=== PATIENT | female | born 1960 | race African-American/Black ===

== ENCOUNTER 2017-09-03 16:28 | Outpatient (CLI) | payer OTHER ==
[2017-09-03 17:40] LABS: Hematocrit 35.2 % (36.0-47.0); Mean Platelet Volume 7.9 fL (7.4-10.4); Red Blood Cell (RBC) Count 4.05 mill/uL (4.20-5.40); White Blood Cell (WBC) Count 12.1 thou/uL (4.8-10.8)
[2017-09-03 18:05] LABS: ALT (SGPT) 17 U/L (8-55); AST (SGOT) 18 U/L (5-34); Alkaline Phosphatase 69 U/L (40-150); Anion Gap 13 mmol/L (10-20); BUN (Urea Nitrogen) 8 mg/dL (9.8-20.1); Bilirubin, Direct 0.3 mg/dL (0.1-0.3); Bilirubin, Total 0.7 mg/dL (0.2-1.2); Calc. Creatinine Clearance 0 mL/min (70-130); Calcium 9.6 mg/dL (7.8-10.44); Carbon Dioxide 26 mmol/L (22-29); Chloride 100 mmol/L (98-107); Estimated GFR-MDRD Greater than 90; Protein, Total 7.8 g/dL (6.0-8.3)
--- NOTE | 2017-09-04 13:23 | EKG ---
Test Reason : PREOP Blood Pressure : / mmHG Vent. Rate : 088 BPM Atrial Rate : 088 BPM P-R Int : 152 ms QRS Dur : 074 ms QT Int : 372 ms P-R-T Axes : 053 013 013 degrees QTc Int : 450 ms Sinus rhythm with occasional Premature ventricular complexes Moderate voltage criteria for LVH, may be normal variant Possible Inferior infarct , age undetermined Abnormal ECG Confirmed by DR. Madan SINGER ([id number]) on 09/04/2017 1:23:26 PM Referred By: GLENDY Confirmed By:DR. Madan SINGER
== END 2017-09-03 16:29 | disposition home or self-care (01) ==
LOC: LABBT 16:28
PROVIDERS: ATTEND Surgery
DX: Z01.812 Encounter for preprocedural laboratory examination (principal); K80.20 Calculus of gallbladder without cholecystitis without obstruction
CPT/HCPCS: 80048; 80076; 85027; 93005; 93010

== ENCOUNTER 2017-11-21 10:22 | Outpatient (CLI) | payer OTHER ==
[2017-11-21 11:34] LABS: Hemoglobin 12.8 g/dL (12.0-16.0); Mean Corpuscular HGB CONC 32.6 g/dL (32.0-36.0); Mean Corpuscular Hemoglobin 28.9 pg (27.0-31.0); Mean Corpuscular Volume 88.7 fl (81.0-99.0); Mean Platelet Volume 9.7 fL (7.4-10.4); Platelet Count 195 thou/uL (130-400); RBC Distribution Width 13.5 % (11.5-14.5); Red Blood Cell (RBC) Count 4.41 mill/uL (4.20-5.40); White Blood Cell (WBC) Count 8.5 thou/uL (4.8-10.8)
[2017-11-21 12:02] LABS: ALT (SGPT) 12 U/L (8-55); AST (SGOT) 16 U/L (5-34); Albumin 4.2 g/dL (3.5-5.0); Alkaline Phosphatase 71 U/L (40-150); Anion Gap 11 mmol/L (10-20); BUN (Urea Nitrogen) 10 mg/dL (9.8-20.1); Bilirubin, Direct 0.2 mg/dL (0.1-0.3); Bilirubin, Total 0.4 mg/dL (0.2-1.2); Calc. Creatinine Clearance 0 mL/min (70-130); Calcium 9.5 mg/dL (7.8-10.44); Carbon Dioxide 27 mmol/L (22-29); Chloride 104 mmol/L (98-107); Estimated GFR-MDRD Greater than 90; Glucose 90 mg/dL (70-105); Potassium 4.1 mmol/L (3.5-5.1); Protein, Total 7.4 g/dL (6.0-8.3); Sodium 138 mmol/L (136-145)
== END 2017-11-21 10:23 | disposition home or self-care (01) ==
LOC: LABBT 10:22
PROVIDERS: ATTEND Surgery
DX: Z01.812 Encounter for preprocedural laboratory examination (principal); K80.20 Calculus of gallbladder without cholecystitis without obstruction
CPT/HCPCS: 80048; 80076; 85027

== ENCOUNTER 2017-11-22 11:34 | Day surgery (SDC) | payer OTHER ==
[2017-11-21 10:42] VITALS: BMI 29.3
[2017-11-22] MEDS ORDERED: Indocyanine Green 25 MG/10 ML VIAL ONE (12:30)
[2017-11-22] MEDS ORDERED: CEFAZOLIN/Water 2 GM/20 ML SYRINGE ONE (12:32)
[2017-11-22] MEDS ORDERED: Bupivacaine/Epinephrine 0.25% 30 ML VIAL ONE (12:36)
[2017-11-22] MEDS ORDERED: HYDROmorphone 0.5 MG/0.5 ML SYRINGE ONE (12:50)
[2017-11-22] MEDS ORDERED: Fentanyl 100 MCG/2 ML VIAL ONE ×2 (12:50→14:38)
[2017-11-22] MEDS ORDERED: Ketorolac Tromethamine 30 MG/ML VIAL ONE (14:04)
[2017-11-22] MEDS ORDERED: Glycopyrrolate 0.2 MG/ML 5 ML SYRINGE ONE (14:04)
[2017-11-22] MEDS ORDERED: diphenhydrAMINE 50 MG/ML VIAL ONE (14:04)
[2017-11-22] MEDS ORDERED: Metoclopramide HCl 10 MG/2 ML VIAL ONE (14:04)
[2017-11-22] MEDS ORDERED: Dexamethasone 20 MG/5 ML VIAL ONE (14:04)
[2017-11-22] MEDS ORDERED: Propofol 200 MG/20 ML VIAL ONE (14:04)
[2017-11-22] MEDS ORDERED: Lidocaine 1% PF 5 ML VIAL ONE (14:04)
--- NOTE | 2017-11-22 18:42 | OP ---
DATE: 11/22/2017 PREOPERATIVE DIAGNOSIS: Symptomatic gallstones. POSTOPERATIVE DIAGNOSIS: Symptomatic gallstones. PROCEDURE: Laparoscopic cholecystectomy. SURGEON: Jimmy Lazaro M.D. ANESTHESIA: General. ESTIMATED BLOOD LOSS: Minimal. COMPLICATIONS: None. SPECIMEN: Gallbladder. FINDINGS: Chronic cholecystitis. TECHNIQUE: The patient was taken to the operating room and placed supine on the table. After genera l anesthetic was obtained, the abdomen was prepped and draped in a sterile fashion. Curved incision made below the umbilicus. Cautery was used to dissect down to and score the fascia. Abdominal cavit y entered bluntly using a Vannesa clamp. Holding stitch of PDS was placed on each side of the fascia. A 12-mm trocar was placed and high-flow pneumoperitoneum was obtained. The robot scope was placed i nto the abdomen. There were significant intra-abdominal adhesions. The right upper quadrant was rel atively spared. Decision was made to not dock to the robot. A 5 mm ports x3 were placed in the righ t upper quadrant and the procedure was done to standard laparoscopic. Gallbladder was retracted from the gallbladder fossa. Some adhesions were taken down to the posterior abdominal wall in the right upper quadrant. Peritoneum of the gallbladder was retracted superiorly. The peritoneum of the gallb ladder was opened anteriorly and posteriorly. The critical view triangle was seen showing only the c ystic duct and cystic artery branching medial to lateral and no other branching structures. Two clip s were placed proximally and one distally and cystic duct was cut using laparoscopic scissors. Cysti c artery was taken in the same way. Cautery was used to dissect the gallbladder out of the gallbladd er fossa. The gallbladder was placed in an Endo catch bag and brought out through the 12-mm trocar s ite. All port sites were infiltrated using local anesthetic. All ports were removed under camera vi sualization. Pneumoperitoneum was let down. PDS was used to close the fascial defect below the umbi licus. All incisions were irrigated and closed using 4-0 Monocryl and Dermabond. The patient was en route to recovery in stable condition. All instrument counts, needle counts, and lap counts were co rrect.
== END 2017-11-22 16:15 | disposition home or self-care (01) ==
LOC: SDC 11:34
PROVIDERS: ATTEND Surgery
PROC: 0FT44ZZ Resection of Gallbladder, Percutaneous Endoscopic Approach (ICD-10-PCS; principal; 2017-11-22)
DX: K80.10 Calculus of gallbladder with chronic cholecystitis without obstruction (principal); E03.9 Hypothyroidism, unspecified; E11.9 Type 2 diabetes mellitus without complications; I10 Essential (primary) hypertension; F32.9 Major depressive disorder, single episode, unspecified; Z79.84 Long term (current) use of oral hypoglycemic drugs; Z79.82 Long term (current) use of aspirin; Z79.890 Hormone replacement therapy; Z79.899 Other long term (current) drug therapy; Z88.5 Allergy status to narcotic agent; Z88.1 Allergy status to other antibiotic agents; Z90.710 Acquired absence of both cervix and uterus; Z90.89 Acquired absence of other organs; Z98.890 Other specified postprocedural states
CPT/HCPCS: 88304; 96374; J1100; J1170; J1200; J1885; J2001; J2704; J2765; J3010

== ENCOUNTER 2018-04-18 13:53 | Outpatient (CLI) | payer OTHER | END 2018-04-18 13:54 | disposition home or self-care (01) | LOC: SCSLAB 13:53 | PROVIDERS: ATTEND Family Medicine | DX: Z00.00 Encounter for general adult medical examination without abnormal findings (principal); E11.65 Type 2 diabetes mellitus with hyperglycemia ==

== ENCOUNTER 2018-08-04 09:18 | Outpatient (CLI) | payer OTHER ==
--- NOTE | 2018-08-04 11:38 | RAD ---
KUB: Indication: Abdominal pain. Comparison: None. FINDINGS: Bowel gas pattern is nonobstructed. There are cholecystectomy clips within the right upper quadrant. There are small phleboliths within the lower pelvis. There are small punctate densities overlying the right renal shadow; one of the largest measures 3.4 mm. Lung bases are clear. No acute osseous abnor mality is evident. IMPRESSION: 1. Right nephrolithiasis. 2. No suspicious calcification seen along the expected course of the renal collecting system. 3. Cholecysetctomy. POS: SALAZAR
== END 2018-08-04 09:19 | disposition home or self-care (01) ==
LOC: RAD-FRANK 09:18
PROVIDERS: ATTEND Nurse Practitioner Family
DX: R10.9 Unspecified abdominal pain (principal); N20.0 Calculus of kidney; Z90.49 Acquired absence of other specified parts of digestive tract
CPT/HCPCS: 74018

== ENCOUNTER 2018-08-21 12:02 | Outpatient (CLI) | payer OTHER ==
--- NOTE | 2018-08-21 14:31 | ULT ---
RENAL ULTRASOUND: HISTORY: Renal calculi. FINDINGS: Real-time imaging of the right and left kidneys was performed. The right kidney measures 9.3 cm and the left kidney 10.4 cm in size. There are no signs of cyst, mass, or obstruction. The bladder catrachita on is unremarkable. IMPRESSION: Unremarkable renal ultrasound. POS: LATA
== END 2018-08-21 12:03 | disposition home or self-care (01) ==
LOC: BICMAMMO 12:02
PROVIDERS: ATTEND Family Medicine
DX: Z12.31 Encounter for screening mammogram for malignant neoplasm of breast (principal); R92.1 Mammographic calcification found on diagnostic imaging of breast; N20.0 Calculus of kidney
CPT/HCPCS: 76770; 77063; 77067

== ENCOUNTER 2018-10-20 09:15 | Emergency (ER) | payer OTHER ==
--- NOTE | 2018-10-20 09:48 | RAD ---
FRONTAL VIEW CHEST: COMPARISON: 11/30/2016. INDICATION: Chest pain. FINDINGS: There is no consolidation, effusion, or pneumothorax. Cardiac silhouette is accentuated by portable technique. IMPRESSION: No focal consolidation. POS: C
[2018-10-20 10:10] LABS: #Basophils 0.1 thou/uL (0.0-0.2); #Lymphocytes 2.3 thou/uL (1.20-3.40); #Monocytes 0.6 thou/uL (0.11-0.59); #Neutrophils 6.1 thou/uL (1.40-6.50); %Basophils 0.7 % (0.0-1.0); %Eosinophils 0.3 % (0.0-10.0); %Lymphocytes 25.7 % (21.0-51.0); %Monocytes 6.1 % (0.0-10.0); %Neutrophils 67.3 % (42.0-75.0); Hemoglobin 10.8 g/dL (12.0-16.0); Mean Corpuscular HGB CONC 32.4 g/dL (32.0-36.0); Mean Corpuscular Hemoglobin 28.1 pg (27.0-31.0); Mean Corpuscular Volume 86.8 fL (78.0-98.0); Mean Platelet Volume 8.3 fL (7.4-10.4); Platelet Count 230 thou/uL (130-400); RBC Distribution Width 12.9 % (11.5-14.5); Red Blood Cell (RBC) Count 3.85 mill/uL (4.20-5.40)
[2018-10-20 10:23] LABS: ALT (SGPT) 15 U/L (8-55); AST (SGOT) 17 U/L (5-34); Albumin 3.8 g/dL (3.5-5.0); Alkaline Phosphatase 67 U/L (40-150); Anion Gap 13 mmol/L (10-20); BUN (Urea Nitrogen) 8 mg/dL (9.8-20.1); Bilirubin, Total 0.6 mg/dL (0.2-1.2); CK (CPK) 96 U/L (29-168); Calc. Creatinine Clearance 0 mL/min (70-130); Calcium 8.8 mg/dL (7.8-10.44); Carbon Dioxide 30 mmol/L (22-29); Chloride 103 mmol/L (98-107); Estimated GFR-MDRD Greater than 90; Globulin 3.1 g/dL (2.4-3.5); Glucose 134 mg/dL (70-105); Lipase 23 U/L (8-78); Potassium 3.7 mmol/L (3.5-5.1); Protein, Total 6.9 g/dL (6.0-8.3); Sodium 142 mmol/L (136-145)
[2018-10-20] MEDS ORDERED: Nitroglycerin 2% Ointment 1 INCH/1 GM Packet ONE (11:03)
--- NOTE | 2018-10-22 15:09 | EKG ---
Test Reason : CHEST PAIN Blood Pressure : / mmHG Vent. Rate : 071 BPM Atrial Rate : 071 BPM P-R Int : 144 ms QRS Dur : 070 ms QT Int : 422 ms P-R-T Axes : 020 004 001 degrees QTc Int : 458 ms Normal sinus rhythm Abnormal ECG Confirmed by HARJEET TA ([id number]), index editor MYCHAL BENITEZ ([id number]) on 10/22/2018 3:09:23 PM Referred By: CELY Confirmed By:HARJEET TA
== END 2018-10-20 13:03 | disposition home or self-care (01) ==
LOC: ERS 09:15
DX: R07.9 Chest pain, unspecified (principal); E05.90 Thyrotoxicosis, unspecified without thyrotoxic crisis or storm; E11.9 Type 2 diabetes mellitus without complications; I10 Essential (primary) hypertension; F32.9 Major depressive disorder, single episode, unspecified; Z79.899 Other long term (current) drug therapy
CPT/HCPCS: 36415; 71045; 80053; 82550; 83690; 84484; 85025; 85379; 93005; 94760

== ENCOUNTER 2019-08-05 12:28 | Outpatient (CLI) | payer OTHER ==
--- NOTE | 2019-08-05 13:22 | MMO ---
Bilateral MAMMO Bilat Screen [facility]. CLINICAL HISTORY: Patient is 59 years old and is seen for screening. The patient has no family history of breast cancer. The patient has no personal history of cancer. The patient has a history of left Excisional Biopsy more than 10 years ago - benign. VIEWS: The views performed were: bilateral craniocaudal with tomosynthesis and bilateral mediolateral oblique with tomosynthesis. FILMS COMPARED: The present examination has been compared to prior imaging studies performed at [facility] on 01/25/2012, 02/24/2013, 07/25/2017 and 08/21/2018. This study has been interpreted with the assistance of computer-aided detection. MAMMOGRAM FINDINGS: There are scattered fibroglandular densities. There are no suspicious masses, suspicious calcifications, or new areas of architectural distortion. IMPRESSION: THERE IS NO MAMMOGRAPHIC EVIDENCE OF MALIGNANCY. A ROUTINE FOLLOW-UP MAMMOGRAM IN 1 YEAR IS RECOMMENDED. THE RESULTS OF THIS EXAM WERE SENT TO THE PATIENT. ACR BI-RADS Category 1 - Negative MAMMOGRAPHY NOTE: 1. A negative mammogram report should not delay a biopsy if a dominant of clinically suspicious mass is present. 2. Approximately 10% to 15% of breast cancers are not detected by mammography. 3. Adenosis and dense breasts may obscure an underlying neoplasm. Reported by: RANJIT ALEJO MD Electonically Signed: [id number]
== END 2019-08-05 12:29 | disposition home or self-care (01) ==
LOC: BICMAMMO 12:28
PROVIDERS: ATTEND Family Medicine
DX: Z12.31 Encounter for screening mammogram for malignant neoplasm of breast (principal)
CPT/HCPCS: 77063; 77067

== ENCOUNTER 2020-07-29 17:54 | Emergency (ER) | payer OTHER, SELFPAY ==
[2020-07-29 18:45] LABS: #Lymphocytes 1.9 thou/uL (1.20-3.40); #Neutrophils 11.2 thou/uL (1.40-6.50); %Basophils 0.1 % (0.0-1.0); %Eosinophils 0.3 % (0.0-10.0); %Lymphocytes 13.3 % (21.0-51.0); %Monocytes 7.2 % (0.0-10.0); %Neutrophils 79.1 % (42.0-75.0); Hemoglobin 10.6 g/dL (12.0-16.0); Mean Corpuscular HGB CONC 32.4 g/dL (32.0-36.0); Mean Corpuscular Hemoglobin 28.7 pg (27.0-31.0); Mean Corpuscular Volume 88.5 fL (78.0-98.0); Mean Platelet Volume 8.5 fL (7.4-10.4); Platelet Count 251 thou/uL (130-400); RBC Distribution Width 13.2 % (11.5-14.5); Red Blood Cell (RBC) Count 3.69 mill/uL (4.20-5.40); White Blood Cell (WBC) Count 14.1 thou/uL (4.8-10.8)
[2020-07-29 18:56] LABS: Bilirubin Negative (Negative); Blood, Urine Negative (Negative); Clarity Clear (Clear); Glucose, Urine (Dipstick) Normal (Negative); Ketone, Urine Negative (Negative); Leukocyte Negative Leu/uL (Negative); Nitrite Negative (Negative); Protein, Urine (Dipstick) Negative (Neg-Trace); Specific Gravity, Urine 1.007 (1.002-1.036); Urobilinogen Normal mg/dL (Less than 2); pH, Urine 6.5 (5.0-9.0)
[2020-07-29 19:04] LABS: ALT (SGPT) 14 U/L (8-55); AST (SGOT) 19 U/L (5-34); Albumin 4.1 g/dL (3.5-5.0); Alkaline Phosphatase 68 U/L (40-110); Anion Gap 13 mmol/L (10-20); BUN (Urea Nitrogen) 10 mg/dL (9.8-20.1); Bilirubin, Total 0.2 mg/dL (0.2-1.2); Calc. Creatinine Clearance 0 mL/min (70-130); Calcium 9.7 mg/dL (7.8-10.44); Carbon Dioxide 29 mmol/L (22-29); Chloride 101 mmol/L (98-107); Estimated GFR-MDRD Greater than 90; Globulin 3.4 g/dL (2.4-3.5); Potassium 3.5 mmol/L (3.5-5.1); Protein, Total 7.5 g/dL (6.0-8.3); Sodium 139 mmol/L (136-145)
[2020-07-29 19:16] LABS: Glucose 31 mg/dL (70-105)
[2020-07-29] MEDS ORDERED: Dextrose 50% Abboject 50 ML SYRINGE ONE (19:28)
== END 2020-07-29 23:39 | disposition home or self-care (01) ==
LOC: ERS 17:54
DX: E11.649 Type 2 diabetes mellitus with hypoglycemia without coma (principal); E05.90 Thyrotoxicosis, unspecified without thyrotoxic crisis or storm; I10 Essential (primary) hypertension; F32.9 Major depressive disorder, single episode, unspecified; Z79.84 Long term (current) use of oral hypoglycemic drugs; Z79.899 Other long term (current) drug therapy
CPT/HCPCS: 36415; 36416; 80053; 81003; 85025; 96374

== ENCOUNTER 2024-03-16 13:55 | Inpatient (IN) | payer BC ==
[2024-03-16 21:22] VITALS: BMI 29.7
[2024-03-19 16:35] VITALS: BP 152/88; TEMP 98.3
== END 2024-03-19 19:12 | disposition home or self-care (01) | DRG 287 ==
LOC: ERS 13:55 → ERHOLD 15:44 → 2SW 20:54 → OBSVTOIN 03-18 15:58
PROVIDERS: ADMIT Family Medicine; ATTEND Family Medicine
PROC: 4A023N7 Measurement of Cardiac Sampling and Pressure, Left Heart, Percutaneous Approach (ICD-10-PCS; principal; 2024-03-19)
PROC: B2111ZZ Fluoroscopy of Multiple Coronary Arteries using Low Osmolar Contrast (ICD-10-PCS; 2024-03-19)
PROC: B2151ZZ Fluoroscopy of Left Heart using Low Osmolar Contrast (ICD-10-PCS; 2024-03-19)
DX: I20.1 Angina pectoris with documented spasm (principal); E11.9 Type 2 diabetes mellitus without complications; E03.9 Hypothyroidism, unspecified; I10 Essential (primary) hypertension; E78.5 Hyperlipidemia, unspecified; F41.9 Anxiety disorder, unspecified; F32.A Depression, unspecified; K21.9 Gastro-esophageal reflux disease without esophagitis; J45.909 Unspecified asthma, uncomplicated; Z88.5 Allergy status to narcotic agent; Z88.1 Allergy status to other antibiotic agents; Z79.899 Other long term (current) drug therapy; Z79.890 Hormone replacement therapy; Z79.82 Long term (current) use of aspirin; Z90.710 Acquired absence of both cervix and uterus; Z98.890 Other specified postprocedural states; Z90.89 Acquired absence of other organs
CPT/HCPCS: 36415; 36416; 71045; 78452; 80048; 80053; 80061; 83036; 83690; 83880; 84484; 85025; 93005; 93017; 93306; 93458; 99152; 99153; A9502; C1769; C1887; C1894; J1644; J2001; J2250; J2785; J3010; J7050

== ENCOUNTER 2024-09-21 11:16 | Inpatient (IN) | payer BC, OTHER ==
[2024-09-21] MEDS ORDERED: Nitroglycerin 0.4 MG TAB 1 EACH ONE (13:09)
[2024-09-21 13:51] LABS: #Basophils 0.05 10x3/uL (0.0-0.2); #Eosinophils Less than 0.03 10x3/uL (0.0-0.7); %Basophils 0.4 % (0.0-1.0); %Eosinophils 0.2 % (0.0-10.0); %Lymphocytes 24.7 % (21.0-51.0); %Monocytes 8.3 % (0.0-10.0); %Neutrophils 66.1 % (42.0-75.0); Hematocrit 41.3 % (36.0-47.0); Hemoglobin 13.8 g/dL (12.0-16.0); Mean Corpuscular HGB CONC 33.4 g/dL (32.0-36.0); Mean Corpuscular Hemoglobin 28.2 pg (27.0-31.0); Mean Corpuscular Volume 84.3 fL (78.0-98.0); Mean Platelet Volume 11.4 fL (7.4-10.4); Platelet Count 237 10x3/uL (130-400); RBC Distribution Width 14.6 % (11.5-14.5)
[2024-09-21] MEDS ORDERED: Nitroglycerin 2% Ointment 1 INCH/1 GM Packet ONE (15:04)
[2024-09-21 16:14] LABS: ALT (SGPT) 19 U/L (8-55); AST (SGOT) 32 U/L (5-34); Albumin 3.7 g/dL (3.4-4.8); Alkaline Phosphatase 80 U/L (40-110); Anion Gap 18 mmol/L (10-20); BUN (Urea Nitrogen) 7 mg/dL (9.8-20.1); Bilirubin, Total 0.6 mg/dL (0.2-1.2); Calc. Creatinine Clearance 0 mL/min (70-130); Calcium 8.6 mg/dL (7.8-10.44); Carbon Dioxide 20 mmol/L (23-31); Chloride 105 mmol/L (98-107); Estimated GFR 91; Globulin 3.7 g/dL (2.4-3.5); Glucose 144 mg/dL (80-115); Potassium 3.5 mmol/L (3.5-5.1); Protein, Total 7.4 g/dL (5.8-8.1); Sodium 139 mmol/L (136-145)
[2024-09-21 16:35] LABS: Troponin I 0.746 ng/mL (< 0.028)
[2024-09-21] MEDS ORDERED: Acetaminophen 325 MG TAB PO PRN (18:35)
[2024-09-21] MEDS ORDERED: Nitroglycerin 0.4 MG TAB (25 Tab Bottle) SL PRN (18:35)
[2024-09-21] MEDS ORDERED: Acetaminophen 650 MG Suppository PR PRN (18:35)
[2024-09-21] MEDS ORDERED: Calcium Carbonate 500 MG ChewTAB PO PRN (18:35)
[2024-09-21] MEDS ORDERED: Albuterol 200 PUFF (6.7GM INHALER) INH PRN (18:46)
[2024-09-21] MEDS ORDERED: Dextrose 5% in Water 1,000 ML IV PRN (18:50)
[2024-09-21] MEDS ORDERED: Insulin Regular, Human 100 UNIT/ML 10 ML VIAL SC PRN ×2 (18:50)
[2024-09-21] MEDS ORDERED: Dextrose 50% Abboject 50 ML SYRINGE SLOW IVP PRN (18:50)
[2024-09-21] MEDS ORDERED: Glucagon 1 MG/ML KIT IM PRN (18:50)
[2024-09-21] MEDS ORDERED: Nitroglycerin 50 MG/250 ML BOT 250 ML ONE (22:18)
[2024-09-21] MEDS ORDERED: Pregabalin 75 MG CAP ONE (22:31)
[2024-09-21] MEDS: Montelukast Sodium 10 mg Tablet PO SCH (22:42)
[2024-09-21] MEDS: Pregabalin 75 MG CAP PO SCH (22:44)
[2024-09-21 23:02] LABS: Troponin I 5.924 ng/mL (< 0.028)
[2024-09-22] MEDS ORDERED: Enoxaparin 80 MG (0.8 mL) SYRINGE ONE (00:59)
[2024-09-22] MEDS: Enoxaparin 80 MG (0.8 mL) SYRINGE SC SCH ×3 (01:03→21:21)
[2024-09-22 04:35] LABS: #Basophils 0.04 10x3/uL (0.0-0.2); %Basophils 0.4 % (0.0-1.0); %Eosinophils 0.5 % (0.0-10.0); %Lymphocytes 32.5 % (21.0-51.0); %Monocytes 7.7 % (0.0-10.0); %Neutrophils 58.6 % (42.0-75.0); Hematocrit 40.7 % (36.0-47.0); Hemoglobin 13.5 g/dL (12.0-16.0); Mean Corpuscular HGB CONC 33.2 g/dL (32.0-36.0); Mean Corpuscular Hemoglobin 27.9 pg (27.0-31.0); Mean Corpuscular Volume 84.1 fL (78.0-98.0); Platelet Count 216 10x3/uL (130-400); RBC Distribution Width 14.6 % (11.5-14.5); Red Blood Cell (RBC) Count 4.84 mill/uL (4.20-5.40)
[2024-09-22 04:44] LABS: Anion Gap 11 mmol/L (10-20); BUN (Urea Nitrogen) 7 mg/dL (9.8-20.1); Calc. Creatinine Clearance 115 mL/min (70-130); Calcium 8.5 mg/dL (7.8-10.44); Carbon Dioxide 20 mmol/L (23-31); Cardiac Risk 2.3 (Less than 4.5); Chloride 108 mmol/L (98-107); Cholesterol 101 mg/dl (< 200 Desired); Estimated GFR 101; Glucose 128 mg/dL (80-115); HDL Cholesterol 43 mg/dL (>60 Neg Risk); LDL Cholesterol, Calculated 46 mg/dL; Potassium 3.3 mmol/L (3.5-5.1); Sodium 136 mmol/L (136-145); Triglycerides 60 mg/dL (Less than 150)
[2024-09-22] MEDS ORDERED: Nitroglycerin 50 MG/250 ML BOT 250 ML IVPB SCH (05:30)
[2024-09-22] MEDS: Levothyroxine Sodium 25 MCG TAB PO SCH (06:16)
[2024-09-22] MEDS ORDERED: Electrolyte Replacement Protocol 1 EACH FS PRN (08:22)
[2024-09-22] MEDS: Atorvastatin Calcium 10 MG TAB PO SCH (08:47)
[2024-09-22] MEDS: Isosorbide Mononitrate 30 MG ER.TAB PO SCH ×2 (08:47→11:23)
[2024-09-22] MEDS: Empagliflozin 10 MG TAB PO SCH (08:47)
[2024-09-22] MEDS: Pantoprazole DR 40 MG TAB PO SCH (08:47)
[2024-09-22] MEDS: dilTIAZem CD 240 MG CAP PO SCH (08:47)
[2024-09-22] MEDS: FLUoxetine HCl 20 MG CAP PO SCH (08:48)
[2024-09-22] MEDS: Aspirin Chewable 81 MG TAB PO SCH (08:48)
[2024-09-22] MEDS ORDERED: dilTIAZem CD 180 MG CAP PO SCH (09:00)
[2024-09-22] MEDS ORDERED: CeleCOXIB 100 MG CAP PO SCH (09:00)
[2024-09-22] MEDS: Potassium Chloride 10 MEQ in Premix 1 BAG IVPB SCH (09:01)
[2024-09-22 10:19] LABS: Thyroid Stimulating Hormone 0.5856 uIU/mL (0.35-4.94)
[2024-09-22] MEDS: CeleCOXIB 100 MG CAP PO SCH (11:22)
[2024-09-22] MEDS: Potassium Chloride 10 MEQ TAB PO SCH (11:22)
[2024-09-22] MEDS ORDERED: Iopamidol-370 76% 500 ML MDV (1 ML CHARGE) ONE (11:28)
[2024-09-22] MEDS: Potassium Chloride 20 MEQ in Premix 1 BAG IVPB SCH (11:45)
[2024-09-22 15:28] LABS: Magnesium 1.9 mg/dL (1.6-2.6)
[2024-09-22 17:04] LABS: Potassium 3.6 mmol/L (3.5-5.1)
[2024-09-22] MEDS: Magnesium 2 GM/50 ML(in water) 2 GM in Premix 1 BAG IVPB SCH (17:22)
[2024-09-22 22:40] LABS: Amphetamine Not Detected (NotDetected); Barbiturates Screen Not Detected (NotDetected); Benzodiazepine Screen Not Detected (NotDetected); Cocaine Metabolite Screen Not Detected (NotDetected); Methadone Not Detected (NotDetected); Methamphetamine Not Detected (NotDetected); Opiate Screen Not Detected (NotDetected); Oxycodone Screen Not Detected (NotDetected); Phencyclidine (PCP) Not Detected (NotDetected); THC/Cannabinoid Screen Not Detected (NotDetected); Tricyclic Screen Not Detected (NotDetected)
[2024-09-23] MEDS: Ondansetron ODT 4 MG TAB PO PRN (03:00)
[2024-09-23 04:48] LABS: #Basophils 0.05 10x3/uL (0.0-0.2); %Basophils 0.6 % (0.0-1.0); %Lymphocytes 38.9 % (21.0-51.0); %Neutrophils 52.1 % (42.0-75.0); Hematocrit 46.8 % (36.0-47.0); Hemoglobin 15.1 g/dL (12.0-16.0); Mean Corpuscular HGB CONC 32.3 g/dL (32.0-36.0); Mean Corpuscular Hemoglobin 27.8 pg (27.0-31.0); Mean Platelet Volume 12.2 fL (7.4-10.4); Platelet Count 154 10x3/uL (130-400); RBC Distribution Width 14.9 % (11.5-14.5); Red Blood Cell (RBC) Count 5.44 mill/uL (4.20-5.40)
[2024-09-23 05:06] LABS: Anion Gap 14 mmol/L (10-20); BUN (Urea Nitrogen) 7 mg/dL (9.8-20.1); Calc. Creatinine Clearance 90 mL/min (70-130); Calcium 8.6 mg/dL (7.8-10.44); Carbon Dioxide 18 mmol/L (23-31); Chloride 109 mmol/L (98-107); Estimated GFR 89; Glucose 180 mg/dL (80-115); Potassium 3.9 mmol/L (3.5-5.1); Sodium 137 mmol/L (136-145)
[2024-09-23 05:28] LABS: Troponin I 3.113 ng/mL (< 0.028)
[2024-09-23] MEDS: Isosorbide Mononitrate 60 MG ER.TAB PO SCH (09:53)
[2024-09-23] MEDS: Magnesium Oxide 400 MG TAB PO SCH (09:53)
[2024-09-23] MEDS: Magnesium 2 GM/50 ML(in water) 2 GM in Premix 1 BAG IVPB SCH (11:09)
[2024-09-23] MEDS: Senokot S 8.6-50 MG TAB PO PRN (21:10)
[2024-09-24 04:03] VITALS: TEMP 98.1
[2024-09-24 04:43] LABS: #Basophils 0.04 10x3/uL (0.0-0.2); %Basophils 0.5 % (0.0-1.0); %Eosinophils 0.8 % (0.0-10.0); %Lymphocytes 33.7 % (21.0-51.0); %Neutrophils 56.7 % (42.0-75.0); Hematocrit 39.3 % (36.0-47.0); Mean Corpuscular HGB CONC 33.1 g/dL (32.0-36.0); Mean Corpuscular Hemoglobin 28.1 pg (27.0-31.0); Mean Corpuscular Volume 84.9 fL (78.0-98.0); Mean Platelet Volume 10.6 fL (7.4-10.4); Platelet Count 223 10x3/uL (130-400); RBC Distribution Width 14.6 % (11.5-14.5); Red Blood Cell (RBC) Count 4.63 mill/uL (4.20-5.40)
[2024-09-24 05:05] LABS: Anion Gap 13 mmol/L (10-20); BUN (Urea Nitrogen) 9 mg/dL (9.8-20.1); Calc. Creatinine Clearance 94 mL/min (70-130); Calcium 8.2 mg/dL (7.8-10.44); Carbon Dioxide 21 mmol/L (23-31); Chloride 108 mmol/L (98-107); Estimated GFR 94; Glucose 134 mg/dL (80-115); Potassium 3.9 mmol/L (3.5-5.1); Sodium 138 mmol/L (136-145)
[2024-09-24 11:13] VITALS: BP 114/67
== END 2024-09-24 16:45 | disposition home or self-care (01) | DRG 282 ==
LOC: ERS 11:16 → ERHOLD 18:38 → OBSVTOIN 09-22 00:58 → CCU 09-22 02:31 → 2NO 09-23 16:29
PROVIDERS: ADMIT Hospitalist; ATTEND Internal Medicine
DX: I25.111 Atherosclerotic heart disease of native coronary artery with angina pectoris with documented spasm (principal); I21.A1 Myocardial infarction type 2; M94.0 Chondrocostal junction syndrome [Tietze]; F32.A Depression, unspecified; E03.9 Hypothyroidism, unspecified; E78.5 Hyperlipidemia, unspecified; I10 Essential (primary) hypertension; E11.9 Type 2 diabetes mellitus without complications; J45.909 Unspecified asthma, uncomplicated; Z88.5 Allergy status to narcotic agent; F41.9 Anxiety disorder, unspecified; K21.9 Gastro-esophageal reflux disease without esophagitis; Z90.710 Acquired absence of both cervix and uterus; Z90.89 Acquired absence of other organs; Z98.890 Other specified postprocedural states; Z79.82 Long term (current) use of aspirin; Z79.899 Other long term (current) drug therapy; E87.6 Hypokalemia
CPT/HCPCS: 36415; 36416; 71045; 71275; 80048; 80053; 80061; 80306; 83735; 84443; 84481; 84484; 85025; 85379; 93005; 94760; 96372; 96374; 96375; 96376; G0378; J1650; J3475; J3480; Q0162; Q9967